=== PATIENT | female | born 1970 | race Caucasian/White ===

== ENCOUNTER 2016-08-03 09:55 | Day surgery (SDC) | payer BC ==
[2016-08-01 21:11] LABS: HEMATOCRIT 39.5 % (36.0-48.0)
--- NOTE | ~2016-08-03 | OP ---
Record Of Operation [facility] [address] [place]. [address] NAME: VICK VELEZ : 74 STATUS : [facility]#: [id number] AGE: 46 ADM/REG DATE : 08/03/16 MR#: [id number] REPORT SERV DATE: 08/04/16 DICTATED BY: KRISTY MORGAN JR. DATE: 08/03/16 REPORT STATUS : Draft TRANSCRIBED BY: MODL DATE: 08/03/16 DATE OF PROCEDURE: REASON FOR SURGERY: This 46-year-old patient underwent core biopsy of a mass in the left breast in [place] with a diagnosis of LCIS. However, her presenting mass has both dimpling and induration, occupying almost a third of the lateral left breast from under the nipple-areolar complex, extending laterally. It is not fixed and is quite vague, but very real and highly suspicious for invasive malignancy. However, core biopsies only showed LCIS. Reviewed her findings and presented her case at the weekly breast conference. Her breast history is quite negative. Her family history is not impressive, but with LCIS at her young age, cancer risk counseling was undertaken and findings from genetic screening are pending. The patient did undergo an MRI because of the vague nature of the process and it appears that this is at least 4.4 cm in size, although on clinical exam I would say with the diffuse nature, it is much larger, measuring as much as 9 cm across. The lymph nodes are not palpable. I did an FNA that was negative, but a very small amount of tissue was retrieved. Overall, the node is only minimally enlarged and has only a minimal increase in cortical dimension. It was offered to redo core biopsies under ultrasound guidance of what are suspicious areas on ultrasound, but the patient is not willing to this. An open biopsy would seem reasonable. PREOPERATIVE DIAGNOSIS: LCIS, left breast, rule out invasive cancer. POSTOPERATIVE DIAGNOSIS: LCIS, left breast, rule out invasive cancer. SURGEON: Kristy Morgan M.D. SURGERY PERFORMED: Ultrasound-directed core biopsies, followed by ultrasound-directed core biopsy of axillary node with final open biopsy of left breast mass. PROCEDURE IN DETAIL: Under general anesthesia, the patient was prepped. Ultrasound was used to localize the area to undergo biopsy. The lateral puncture aidan from the previous biopsy was used, and a #11 blade was used to make a small puncture. There was considerable puckering of this area already from the previous biopsy. Under ultrasound direction, I approached the superior mottled area at the superior margin and three cores were taken under ultrasound guidance. The more central portion was then biopsied with three cores, and then the inferior margin also was biopsied with three cores. These were well tolerated. Attention was then turned to the left axilla. The patient was again prepped, and the node was localized on ultrasound. A small puncture was made, and a new #12-gauge vacuum-assisted Celero device was inserted and under ultrasound guidance, two cores were taken with good penetration of the lymph node. Record Of Operation [place] [id number] [facility]. [address] NAME: VICK VELEZ : 74 STATUS : [facility]#: [id number] AGE: 46 ADM/REG DATE : 08/03/16 MR#: [id number] REPORT SERV DATE: 08/04/16 DICTATED BY: KRISTY MORGAN JR. DATE: 08/03/16 REPORT STATUS : Draft TRANSCRIBED BY: TAMICA DATE: 08/03/16 At this time, the patient was prepped and draped in the usual sterile fashion. A small curvilinear incision was made directly over the retracted site 2 cm lateral to the areola. Vertical dissection was carried down through the fatty tissue without flap elevation. Once the surface of the hard mass was encountered, an incision was made with the knife and a 1 cm sphere of fleshy tissue was removed and sent to Pathology. The cavity was irrigated, and hemostasis was obtained. The wound was closed with two layers of Monocryl. Dermabond was used to close the previous puncture sites. The patient tolerated the procedure well without complications. Estimated blood loss was negligible. Sponge count was correct. /JOSEL Kristy Morgan Jr., M.D. / [id number] CC: Flavio Snider Jr., Christopher
[~2016-08-03 09:55] MED LIST: CLARIT10 PO
[2016-09-16] MEDS ORDERED: MULTIPLE VIT PO (11:44)
[2016-09-16] MEDS ORDERED: TAMOXIFEN PO (11:44)
[2016-09-16] MEDS ORDERED: VITC500 PO (11:44)
[2016-09-16] MEDS ORDERED: VITAMIN B PO (11:45)
[2016-09-16] MEDS ORDERED: ADVIL PO (11:46)
[2016-09-16] MEDS ORDERED: BIOTIN PO (11:46)
[2016-09-16] MEDS ORDERED: ACET500CAP PO (11:47)
== END 2016-08-03 15:37 | disposition home or self-care (01) ==
LOC: SDC 09:55
PROVIDERS: Surgery Surgical Oncology
PROC: 07B63ZX Excision of Left Axillary Lymphatic, Percutaneous Approach, Diagnostic (ICD-10-PCS; 2016-08-03)
PROC: 0HBU3ZX Excision of Left Breast, Percutaneous Approach, Diagnostic (ICD-10-PCS; principal; 2016-08-03 12:00)
DX: C77.3 Secondary and unspecified malignant neoplasm of axilla and upper limb lymph nodes (principal); C50.912 Malignant neoplasm of unspecified site of left female breast; G35 Multiple sclerosis; Z98.51 Tubal ligation status; Z79.899 Other long term (current) drug therapy
CPT/HCPCS: 36415; 84703; 85014; 85018; 88305; 88360; 88367; J0690; J2250; J2270; J2405; J3010

== ENCOUNTER 2016-09-21 11:37 | Observation (INO) | payer BC ==
[2016-09-15 10:38] LABS: BASOPHILS 0.7 %; BASOPHILS ABSOLUTE 0.04 10/3/uL (0.0-0.16); EOSINOPHILS 1.6 %; HEMATOCRIT 41.4 % (36.0-48.0); HEMOGLOBIN 13.6 g/dL (12.0-16.0); LYMPHOCYTES 30.8 %; LYMPHOCYTES ABSOLUTE 1.87 10/3/uL (0.67-4.30); MANUAL DIFF NO %; MEAN CORPUS HGB CONC 32.9 g/dL (32.0-36.0); MEAN CORPUSCULAR HEMOGLOB 31.1 pg (26.0-34.0); MEAN CORPUSCULAR VOLUME 94.5 fL (80-100); MEAN PLATELET VOLUME 9.2 fL (9.2-13.0); MONOCYTES 7.4 %; MONOCYTES ABSOLUTE 0.45 10/3/uL (0.21-1.20); NEUTROPHILS 59.5 %; NEUTROPHILS ABSOLUTE 3.61 10/3/uL (2.02-8.40); PLATELET COUNT 314 10/3/uL (150-400); RBC DISTRIBUTION WIDTH 12.5 % (12.0-16.0); RED CELL COUNT 4.38 10/6/uL (4.0-5.6); WHITE BLOOD CELLS 6.1 10/3/uL (4.5-10.5)
[2016-09-15 10:46] LABS: INTERNATIONAL NORMAL RATI 1.2 UNITS (-); PARTIAL THROMBO TIME 29.9 SEC (22.5-37.2); PROTIME (NOT ORD) 14.8 SEC (12.0-14.5)
[2016-09-15 10:51] LABS: A/G RATIO 1.2 (0.7-1.9); ALBUMIN 3.7 G/DL (3.5-5.0); ALKALINE PHOSPHATASE 46 U/L (45-117); BUN (BLOOD UREA NITROGEN) 13 MG/DL (6-23); CALCIUM, SERUM 8.6 MG/DL (8.5-10.4); CHLORIDE, SERUM 108 MMOL/L (96-112); CO2 (CARBON DIOXIDE) 31 MMOL/L (24-34); CREATININE 0.57 MG/DL (0.55-1.02); GFR AFRICAN AMERICAN 131 ML/MIN (>=60); GFR NON AFRICAN AMERICAN 113 ML/MIN (>=60); GLUCOSE, SERUM 87 MG/DL (60-99); POTASSIUM, SERUM 3.7 MMOL/L (3.5-5.3); SGOT(AST) 16 U/L (5-40); SGPT(ALT) 17 U/L (5-65); SODIUM, SERUM 144 MMOL/L (135-148); TOTAL BILIRUBIN 0.4 MG/DL (0-1.2); TOTAL PROTEIN 6.7 G/DL (6.0-8.5)
[2016-09-16 08:21] LABS: PFA (COL/EPI) 106 SEC (72-180)
--- NOTE | ~2016-09-21 | OP ---
Record Of Operation [facility] [address] [place]. [address] NAME: VICK VELEZ : 74 STATUS : [facility] PAT#: [id number] AGE: 46 ADM/REG DATE : 09/21/16 MR#: [id number] REPORT SERV DATE: 09/22/16 DICTATED BY: KRISTY MORGAN JR. 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 It does encroach close to the nipple and areolar complex, but overall, there is a plane for dissection. She had subcapsular tumor in the lymph node on core biopsy, but the bulk of the larger node was indeed negative. She was found to be negative for inherited genetic defect. She saw the medical oncologist and evaluation with systemic workup was negative. Her Oncotype was low and the amount of burden within the lymphatic tissue is unknown. Whether if this represents only a small area of subcapsular tumor, then perhaps axillary dissection can be avoided. I do not see that she will avoid radiation therapy, which is known to compromise the cosmetic results of a nipple sparing mastectomy and reconstruction to about a 30% unacceptable rate where latissimus flap coverage would become necessary. She also understands the potential loss of the nipple from ischemic damage and also from tumor encroachment. Nonetheless, after multiple consultations and presentation to the Breast Conference, the patient is now to undergo bilateral mastectomies with immediate reconstruction. A low threshold for axillary dissection will be utilized. Once again, I do not see that radiation therapy will be avoided. The role of chemotherapy will be left between the patient and her medical oncologist. Certainly, she will have benefits from prolonged usage of antihormone therapy. PREOPERATIVE DIAGNOSIS: Multifocal and possibly multicentric node, positive carcinoma, left breast. POSTOPERATIVE DIAGNOSIS: Multifocal and possibly multicentric node, positive carcinoma, left breast. SURGEON: Kristy Morgan M.D. with reconstruction by Dr. Hammond. SURGERY PERFORMED: [place] node localization followed by bilateral nipple sparing mastectomies and left sentinel node biopsy and eventual left axillary dissection. DESCRIPTION OF PROCEDURE: The patient was initially injected in the Nuclear Medicine Facility. She was taken to the operating room and under general anesthesia, she was prepped and draped in supine position in the usual sterile fashion. Both breast mounds were marked to their entirety and the inframammary incisions were outlined. The left breast was approached and the incision made. Dissection on the posterior wall was Record Of Operation [facility] [address] [place]. [address] NAME: VICK VELEZ : 74 STATUS : [facility] PAT#: [id number] AGE: 46 ADM/REG DATE : 09/21/16 MR#: [id number] REPORT SERV DATE: 09/22/16 DICTATED BY: KRISTY MORGAN JR. DATE: 09/21/16 REPORT STATUS : Draft TRANSCRIBED BY: TAMICA DATE: 09/21/16 performed sparing the serratus fascia, but incorporating the pectoralis fascia. This was performed on the deep plane up to the superior border of the breast mound. Tapering under the nipple and areolar complex was performed with coring of much of the tissue under the nipple. A suture was placed over the central ductal system that was removed with the intact breast. Further dissection of the superficial plane in each direction allowed full mobilization of the breast. The latissimus was cleared laterally. Dissection was carried into the low axilla and the specimen was removed and oriented for pathology. Gross evaluation revealed a clear plane of subcutaneous fatty tissue and pectoralis fascia covering the tumor sites. No evidence of encroachment. With the gamma probe, the sentinel node was delivered. It was somewhat fleshy and frozen section was requested really revealing 0.5 cm malignancy. The amount of tumor now dictates need of axillary dissection. A curvilinear incision was made in the left axilla below the hair-bearing region. Vertical dissection was carried into the fatty tissue and then subcutaneous planes were elevated. Inferiorly, the previous surgical site was entered, and the dissection of the pectoralis border was performed down to the pectoralis minor border. This dissection was carried off the latissimus posteriorly. With adequate retraction, the axillary vein was exposed and level 2 and level 1 nodes were dissected from medial to lateral from off the axillary vein clipping and dividing the bridging lymphatic and venous tissue. The long thoracic and thoracodorsal bundle were preserved. Once dissection was carried out laterally, the dissection was carried off the deep musculature and the specimen removed. Copious irrigation was performed, and hemostasis was obtained. Attention was then turned to the right breast. A similar inframammary nipple sparing incision was made. Dissection was carried out on the posterior border as previously described. The superficial dissection was then performed dissecting the entire breast mound. The latissimus was cleared laterally. Finally, dissection was carried into the low axilla and the specimen was removed and oriented for pathology. The wound was irrigated and hemostasis was obtained. The patient tolerated this portion of the procedure well without complications. Estimated blood loss was 150 mL. Sponge count was correct. Further description of operation is by Dr. Hammond. /TAMICA Kristy Morgan Jr., M.D. / [id number] Record Of Operation [address] [address] NAME: VICK VELEZ : 74 STATUS : [facility] PAT#: [id number] AGE: 46 ADM/REG DATE : 09/21/16 MR#: [id number] REPORT SERV DATE: 09/22/16 DICTATED BY: KRISTY MORGAN JR. DATE: 09/21/16 REPORT STATUS : Draft TRANSCRIBED BY: TAMICA DATE: 09/21/16 CC: Flavio Snider Jr., M.D. Josh Worthington, MD Derek W Holland, M.D. CHRISTOPHER MULLIN, MD
--- NOTE | ~2016-09-21 | OP ---
Record Of Operation [facility] [address] [place]. [address] NAME: VICK VELEZ : 74 STATUS : [facility] PAT#: [id number] AGE: 46 ADM/REG DATE : 09/21/16 MR#: [id number] REPORT SERV DATE: 09/22/16 DICTATED BY: TEODORO HAMMOND DATE: 09/22/16 REPORT STATUS : Draft TRANSCRIBED BY: MODJersey DATE: 09/22/16 DATE OF PROCEDURE: 09/21/2016 PREOPERATIVE DIAGNOSIS: Surgical absence of the breast, history of breast cancer. POSTOPERATIVE DIAGNOSIS: Surgical absence of the breast, history of breast cancer. PROCEDURE: Bilateral tissue expansion, acellular dermal matrix reconstruction of the breast. INDICATIONS AND FINDINGS OF THE PROCEDURE: This 46-year-old female presents with a surgical absence of the breast. She is appropriate for the above-described operative intervention. DETAILS OF THE PROCEDURE: The patient presents on the operating table after bilateral nipple areolar complex sparing mastectomies. First, our attention was turned to the right breast. Pectoralis and serratus blocks were obtained with ropivacaine solution and the pectoralis muscle was released. An appropriately reconstituted sheet of acellular dermal matrix was then sewn to the cut edge of the pectoralis muscle and then inset around the inframammary crease and laterally. The purpose of the acellular dermal matrix was to supplement the soft tissue envelope, recreate the inframammary crease, and stabilize the position of the tissue fire operations forester. A 500 mL tissue fire operations forester was then prepped on the back table, placed behind the muscle AlloDerm construct, secured to the chest wall and the AlloDerm was wrapped around it. It was then filled to 200. She was thoroughly irrigated with Hibiclens solution, inferior drains were placed, and then she was closed in a progressive tension fashion with multiple layers of 3-0 PDS and Monocryl through to an intracuticular in the skin. The nipple-areolar complex was well perfused. Contralaterally, identical procedure was carried out. The pectoralis muscle was released and identical sheet of acellular dermal matrix was then used to an identical purpose. An identical tissue fire operations forester was then placed behind the muscle AlloDerm construct. The AlloDerm was sewn tightly around it and the tissue fire operations forester was filled to 200. Inferior drains were placed. She was thoroughly irrigated with Hibiclens solution. She had been blocked with ropivacaine and then she was closed in a progressive tension fashion with multiple layers of 3-0 PDS and Monocryl through to an intracuticular in the skin. The axillary contents excision was then closed similarly with deep layers of PDS and Monocryl through to an intracuticular skin. She was cleansed with peroxide, nitro paste. Dry dressings were placed, and she was remanded to the recovery room in stable condition. All sponge and needle counts were correct. LISA/TAMICA Teodoro Hammond M.D. / [id number] CC: Record Of Operation [address] [address] NAME: VICK VELEZ : 74 STATUS : [facility] PAT#: [id number] AGE: 46 ADM/REG DATE : 09/21/16 MR#: [id number] REPORT SERV DATE: 09/22/16 DICTATED BY: TEODORO HAMMOND DATE: 09/22/16 REPORT STATUS : Draft TRANSCRIBED BY: TAMICA DATE: 09/22/16 Flavio Snider Jr., CHRISTOPHER
[~2016-09-21 11:37] MED LIST changes: +ACET500CAP PO; +ADVIL PO; +BIOTIN PO; +MULTIPLE VIT PO; +TAMOXIFEN PO; +VITAMIN B PO; +VITC500 PO
[2016-09-22] MEDS ORDERED: AT25 PO (09:20)
[2016-09-22] MEDS ORDERED: K500 PO (09:21)
[2016-09-22] MEDS ORDERED: PERCOCET 7.5/321 TAB PO (09:22)
[2016-09-22] MEDS ORDERED: ALEVE220 MG PO (09:24)
== END 2016-09-22 12:08 | disposition home or self-care (01) ==
LOC: SDC 11:37 → SDC/OF 19:59 → 4EA 21:45
PROVIDERS: Surgery Surgery of the Hand; Surgery Surgical Oncology
PROC: 07B60ZX Excision of Left Axillary Lymphatic, Open Approach, Diagnostic (ICD-10-PCS; 2016-09-21)
PROC: 0HHV0NZ Insertion of Tissue Expander into Bilateral Breast, Open Approach (ICD-10-PCS; principal; 2016-09-21 14:45)
PROC: 0HTV0ZZ Resection of Bilateral Breast, Open Approach (ICD-10-PCS; 2016-09-21 14:45)
DX: C77.3 Secondary and unspecified malignant neoplasm of axilla and upper limb lymph nodes (principal); C50.912 Malignant neoplasm of unspecified site of left female breast; Z98.51 Tubal ligation status; Z98.890 Other specified postprocedural states; Z79.899 Other long term (current) drug therapy
CPT/HCPCS: 19303; 19357; 38525; G0378; 71020; 78195; 80053; 84703; 85025; 85576; 85610; 85730; 88307; 88331; 88342; 96374; 96375; 96376; A9270-GY; A9541; C1769; C1789; J0330; J0690; J1885; J2250; J2270; J2405; J2710; J2795; J3010; Q4116